=== PATIENT | female | born 1960 | race Caucasian/White ===

== ENCOUNTER 2020-03-20 09:45 | Outpatient (REF) | payer BC, SELFPAY ==
[2020-03-20 10:24] LABS: MANUAL DIFF FLAG NO
[2020-03-20 10:45] LABS: Creatinine Urine 65.73 mg/dL; Microalbum/Creatinine Ratio Ur 7.6 ug/mg cr
[2020-03-20 10:48] LABS: Alanine Aminotransferase 20 U/L (0-31); Albumin Level 4.1 g/dL (3.5-5.0); Alkaline Phosphatase 52 U/L (39-117); Anion Gap 12 (12-20); Aspartate Amino Transferase 19 U/L (5-31); Bilirubin Total 0.9 mg/dL (0.0-1.0); Blood Urea Nitrogen 11 mg/dL (9-16); Calcium 8.6 mg/dL (8.4-10.2); Carbon Dioxide 26 mmol/L (22-29); Chloride 104 mmol/L (96-108); Cholesterol 208 mg/dL; Estimated Glomerular Filt Rate 55; Glucose Fasting 98 mg/dL (60-99); HDL Cholesterol 59 mg/dL; LDL Cholesterol Calculated 128 mg/dl; Potassium 4.1 mmol/l (3.3-5.1); Sodium 138 mmol/L (135-145); Total Protein 6.7 g/dL (6.5-8.0); Triglycerides 109 mg/dL
[2020-03-20 11:04] LABS: Basophils Absolute Auto 0.1 X10*3/uL (0.0-0.2); Eosinophils Absolute Auto 0.2 X10*3/uL (0.0-0.4); Eosinophils Percent Auto 2.4 % (0-4); Hematocrit 42.3 % (37-47); Hemoglobin 13.8 g/dl (12.0-16.0); Imm Gran Abs Auto 0.02 X10*3/uL (0.00-0.03); Imm Gran Pct Auto 0.3 % (0.0-0.4); Lymphocytes Absolute Auto 2.2 X10*3/uL (1.2-4.9); Lymphocytes Percent Auto 34.8 % (20-40); Mean Corpuscular HGB Conc 32.6 g/dl (31.0-35.0); Mean Corpuscular Hemoglobin 30.1 pg (27.0-33.0); Mean Corpuscular Volume 92.2 fL (80-98); Mean Platelet Volume 8.5 fL (9.4-12.3); Monocytes Absolute Auto 0.5 X10*3/uL (0.1-1.2); Monocytes Percent Auto 7.8 % (2-11); Neutrophils Absolute Auto 3.4 X10*3/uL (2.0-8.3); Neutrophils Percent Auto 53.7 % (45-73); Platelet Count 290 X10*3/uL (160-400); Red Blood Count 4.59 X10*6/uL (4.20-5.50); Red Cell Distribution Width 12.4 % (11.0-16.0); White Blood Count 6.3 X10*3/uL (4.8-10.8)
[2020-03-20 11:10] LABS: Glucose Urine UA NEG (NEG); Leukocyte Esterase Urine 1+ (NEG); Nitrite Urine NEG (NEG); Specific Gravity - Urine 1.015 (1.005-1.025); Urine Blood NEG (NEG); Urine Ketones NEG (NEG); Urine Protein NEG (NEG-TRACE)
[2020-03-20 11:18] LABS: Appearance Urine CLEAR; Color Urine YELLOW
[2020-03-20 11:30] LABS: Mucus Urine 1+ /LPF; RBC Urine 0 /HPF (0); Renal Epithelial Cells Urine 1+ /LPF; Squamous Epithelial Cell Urine 1+ /LPF
[2020-03-22 08:06] LABS: HIV AB/AG Nonreactive (Nonreactive); ~HepC Num1 0.11 S/CO (0.00-0.79); ~Hepatitis C Antibody Nonreactive (Nonreactive)
== END 2020-03-20 09:46 | disposition home or self-care (01) ==
LOC: HO.LAB 09:45
PROVIDERS: Absent Provider Internal Medicine Hypertension Specialist; PCP Internal Medicine; Visit Provider Internal Medicine
DX: G43.909 Migraine, unspecified, not intractable, without status migrainosus (principal); E78.00 Pure hypercholesterolemia, unspecified; E55.9 Vitamin D deficiency, unspecified; E78.5 Hyperlipidemia, unspecified; N18.30 Chronic kidney disease, stage 3 unspecified; Z11.4 Encounter for screening for human immunodeficiency virus [HIV]; Z11.59 Encounter for screening for other viral diseases
CPT/HCPCS: 36415; 80053; 80061; 81001; 81003; 82043; 82306; 84443; 85025; 86803; 87389

== ENCOUNTER 2020-10-19 07:53 | Outpatient (REF) | payer BC, SELFPAY ==
[2020-10-19 09:25] LABS: Anion Gap 11 (12-20); Blood Urea Nitrogen 14 mg/dL (9-16); Calcium 8.8 mg/dL (8.4-10.2); Carbon Dioxide 26 mmol/L (22-29); Chloride 108 mmol/L (96-108); Estimated Glomerular Filt Rate 47; Potassium 3.9 mmol/L (3.3-5.1); Sodium 141 mmol/L (135-145)
[2020-10-19 10:46] LABS: Glucose Urine UA NEG (NEG); Leukocyte Esterase Urine NEG (NEG); Nitrite Urine NEG (NEG); PH 5.5 (5.0-8.0); Specific Gravity - Urine >= 1.030 (1.005-1.025); Urine Blood NEG (NEG); Urine Ketones NEG (NEG); Urine Protein TRACE MG/DL (NEG-TRACE)
[2020-10-19 10:48] LABS: Creatinine Urine 280.77 mg/dL; Microalbum/Creatinine Ratio Ur 6.7 ug/mg cr
[2020-10-19 10:49] LABS: Appearance Urine HAZY; Color Urine YELLOW
== END 2020-10-19 07:54 | disposition home or self-care (01) ==
LOC: HO.LAB 07:53
PROVIDERS: PCP Internal Medicine; Visit Provider Internal Medicine Hypertension Specialist
DX: E78.5 Hyperlipidemia, unspecified (principal); N18.30 Chronic kidney disease, stage 3 unspecified
CPT/HCPCS: 36415; 80051; 81003; 82043; 82310; 82565; 84520

== ENCOUNTER 2021-06-28 08:20 | Outpatient (REF) | payer BC, SELFPAY ==
[2021-06-28 08:36] LABS: MANUAL DIFF FLAG NO
[2021-06-28 09:19] LABS: Basophils Absolute Auto 0.1 X10*3/uL (0.0-0.2); Eosinophils Absolute Auto 0.2 X10*3/uL (0.0-0.4); Eosinophils Percent Auto 2.6 % (0-4); Hematocrit 42.1 % (37.0-47.0); Hemoglobin 13.7 g/dl (12.0-16.0); Imm Gran Abs Auto 0.02 X10*3/uL (0.00-0.03); Imm Gran Pct Auto 0.3 % (0.0-0.4); Lymphocytes Absolute Auto 2.3 X10*3/uL (1.2-4.9); Lymphocytes Percent Auto 37.1 % (20-40); Mean Corpuscular HGB Conc 32.5 g/dl (31.0-35.0); Mean Corpuscular Hemoglobin 30.2 pg (27.0-33.0); Mean Corpuscular Volume 92.7 fL (80.0-98.0); Mean Platelet Volume 8.6 fL (9.4-12.3); Monocytes Absolute Auto 0.5 X10*3/uL (0.1-1.2); Monocytes Percent Auto 7.7 % (2-11); Neutrophils Absolute Auto 3.1 x10*3/uL (2.0-8.3); Neutrophils Percent Auto 51.3 % (45-73); Platelet Count 272 X10*3/uL (160-400); Red Blood Count 4.54 X10*6/uL (4.20-5.50); Red Cell Distribution Width 12.9 % (11.0-16.0); White Blood Count 6.1 X10*3/uL (4.8-10.8)
[2021-06-28 09:41] LABS: Alanine Aminotransferase 26 U/L (0-31); Alkaline Phosphatase 56 U/L (39-117); Anion Gap 13 (12-20); Aspartate Amino Transferase 20 U/L (5-31); Bilirubin Total 0.5 mg/dL (0.0-1.0); Blood Urea Nitrogen 12 mg/dL (9-16); Calcium 8.9 mg/dL (8.4-10.2); Carbon Dioxide 27 mmol/L (22-29); Chloride 106 mmol/L (96-108); Cholesterol 229 mg/dL; Estimated Glomerular Filt Rate 52; Glucose Random 106 mg/dL (60-115); HDL Cholesterol 59 mg/dL; LDL Cholesterol Calculated 139 mg/dl; Potassium 4.5 mmol/L (3.3-5.1); Sodium 141 mmol/L (135-145); Total Protein 6.7 g/dL (6.5-8.0); Triglycerides 157 mg/dL
[2021-06-28 09:54] LABS: Thyroid Stimulating Hormone 2.25 uIU/mL (0.32-4.0)
== END 2021-06-28 08:21 | disposition home or self-care (01) ==
LOC: HO.LAB 08:20
PROVIDERS: PCP Internal Medicine; Visit Provider Internal Medicine
DX: N18.31 Chronic kidney disease, stage 3a (principal); E78.00 Pure hypercholesterolemia, unspecified
CPT/HCPCS: 36415; 80053; 80061; 84443; 85025

== ENCOUNTER 2021-10-11 08:28 | Outpatient (REF) | payer BC, SELFPAY ==
[2021-10-11 09:11] LABS: MANUAL DIFF FLAG NO
[2021-10-11 10:03] LABS: Basophils Absolute Auto 0.1 X10*3/uL (0.0-0.2); Basophils Percent Auto 0.8 % (0-2); Eosinophils Absolute Auto 0.2 X10*3/uL (0.0-0.4); Eosinophils Percent Auto 2.9 % (0-4); Hematocrit 40.5 % (37.0-47.0); Hemoglobin 13.5 g/dl (12.0-16.0); Imm Gran Abs Auto 0.02 X10*3/uL (0.00-0.03); Imm Gran Pct Auto 0.3 % (0.0-0.4); Lymphocytes Absolute Auto 2.1 X10*3/uL (1.2-4.9); Lymphocytes Percent Auto 33.5 % (20-40); Mean Corpuscular HGB Conc 33.3 g/dl (31.0-35.0); Mean Corpuscular Hemoglobin 30.3 pg (27.0-33.0); Mean Platelet Volume 8.7 fL (9.4-12.3); Monocytes Absolute Auto 0.5 X10*3/uL (0.1-1.2); Monocytes Percent Auto 8.6 % (2-11); Neutrophils Absolute Auto 3.4 x10*3/uL (2.0-8.3); Neutrophils Percent Auto 53.9 % (45-73); Platelet Count 279 X10*3/uL (160-400); Red Blood Count 4.45 X10*6/uL (4.20-5.50); Red Cell Distribution Width 12.8 % (11.0-16.0); White Blood Count 6.3 X10*3/uL (4.8-10.8)
[2021-10-11 10:28] LABS: Appearance Urine CLEAR; Color Urine YELLOW; Glucose Urine UA NEG (NEG); Leukocyte Esterase Urine NEG (NEG); Nitrite Urine NEG (NEG); PH 5.5 (5.0-8.0); Urine Blood NEG (NEG); Urine Ketones NEG (NEG); Urine Protein NEG (NEG-TRACE)
[2021-10-11 10:44] LABS: Anion Gap 13 (12-20); Blood Urea Nitrogen 14 mg/dL (9-16); Carbon Dioxide 26 mmol/L (22-29); Chloride 107 mmol/L (96-108); Cholesterol 231 mg/dL; Estimated Glomerular Filt Rate 51; HDL Cholesterol 57 mg/dL; LDL Cholesterol Calculated 146 mg/dl; Magnesium 1.9 mg/dL (1.6-2.6); Phosphorus 3.5 mg/dL (2.7-4.5); Potassium 4.6 mmol/L (3.3-5.1); Sodium 141 mmol/L (135-145); Triglycerides 144 mg/dL
[2021-10-11 10:45] LABS: RBC Urine 0 /HPF (0); Squamous Epithelial Cell Urine 1+ /LPF; WBC Urine 0-2 /HPF (0-4)
[2021-10-11 10:46] LABS: Renal Epithelial Cells Urine TRACE /LPF
[2021-10-11 11:05] LABS: Ferritin 122 ng/mL (10-250)
== END 2021-10-11 08:29 | disposition home or self-care (01) ==
LOC: HO.LAB 08:28
PROVIDERS: PCP Internal Medicine; Visit Provider Internal Medicine Hypertension Specialist
DX: E78.5 Hyperlipidemia, unspecified (principal); N18.31 Chronic kidney disease, stage 3a
CPT/HCPCS: 36415; 80051; 80061; 81001; 82310; 82565; 82728; 83735; 84100; 84520; 85025

== ENCOUNTER 2022-02-21 08:19 | Outpatient (REF) | payer BC, SELFPAY ==
[2022-02-21 09:57] LABS: Anion Gap 13 (12-20); Calcium 9.1 mg/dL (8.4-10.2); Carbon Dioxide 27 mmol/L (22-29); Chloride 104 mmol/L (96-108); Estimated Glomerular Filt Rate 55; Glucose Random 105 mg/dL (60-115); Potassium 4.6 mmol/L (3.3-5.1); Sodium 139 mmol/L (135-145)
[2022-02-21 10:04] LABS: Estimated Average Glucose 108 mg/dL; Hemoglobin A1c % 5.4 %
[2022-02-21 11:30] LABS: Blood Urea Nitrogen 13 mg/dL (9-16)
== END 2022-02-21 08:20 | disposition home or self-care (01) ==
LOC: HO.LAB 08:19
PROVIDERS: PCP Internal Medicine; Visit Provider Internal Medicine
DX: R73.01 Impaired fasting glucose (principal); N18.31 Chronic kidney disease, stage 3a
CPT/HCPCS: 36415; 80048; 83036

== ENCOUNTER 2022-10-09 08:16 | Outpatient (REF) | payer BC, SELFPAY ==
[2022-10-09 09:20] LABS: Appearance Urine Clear; Color Urine Dark Yellow; Glucose Urine UA Negative (Negative); Leukocyte Esterase Urine Moderate (2+) (Negative); Nitrite Urine Negative (Negative); PH 5.5 (5.0-9.0); Specific Gravity - Urine 1.025 (1.005-1.025); UMIC TRIGGER UA YES; Urine Blood Negative (Negative); Urine Ketones Trace mg/dL (Negative); Urine Protein Trace mg/dL (Neg-Trace)
[2022-10-09 10:03] LABS: Anion Gap 12 (12-20); Blood Urea Nitrogen 12 mg/dL (9-16); Calcium 9.3 mg/dL (8.4-10.2); Carbon Dioxide 27 mmol/L (22-29); Chloride 107 mmol/L (96-108); Estimated Glomerular Filt Rate 48; Potassium 3.7 mmol/L (3.3-5.1); Sodium 142 mmol/L (135-145)
[2022-10-09 10:08] LABS: Bacteria Urine None Seen (None Seen); RBC Urine 0-2 /HPF (0-2); WBC Urine 21-50 /HPF (0-5)
[2022-10-09 10:13] LABS: Protein/Creatinine Ratio, Ur 0.05 (<0.2); Total Protein Urine Random 18 mg/dL (<12)
== END 2022-10-09 08:17 | disposition home or self-care (01) ==
LOC: HO.LAB 08:16
PROVIDERS: PCP Internal Medicine; Visit Provider Internal Medicine Hypertension Specialist
DX: N18.31 Chronic kidney disease, stage 3a (principal)
CPT/HCPCS: 36415; 80051; 81001; 82310; 82565; 84156; 84520

== ENCOUNTER 2023-05-22 08:29 | Outpatient (REF) | payer BC, SELFPAY ==
[2023-05-22 09:02] LABS: MANUAL DIFF FLAG NO
[2023-05-22 10:31] LABS: Basophils Absolute Auto 0.1 X10*3/uL (0.0-0.2); Basophils Percent Auto 1.1 % (0-2); Eosinophils Absolute Auto 0.2 X10*3/uL (0.0-0.4); Eosinophils Percent Auto 2.7 % (0-4); Hematocrit 40.5 % (37.0-47.0); Hemoglobin 13.4 g/dl (12.0-16.0); Imm Gran Abs Auto 0.02 X10*3/uL (0.00-0.03); Imm Gran Pct Auto 0.3 % (0.0-0.4); Lymphocytes Absolute Auto 2.2 X10*3/uL (1.2-4.9); Lymphocytes Percent Auto 33.6 % (20-40); Mean Corpuscular HGB Conc 33.1 g/dl (31.0-35.0); Mean Corpuscular Hemoglobin 29.8 pg (27.0-33.0); Mean Corpuscular Volume 90.2 fL (80.0-98.0); Mean Platelet Volume 8.5 fL (9.4-12.3); Monocytes Absolute Auto 0.5 X10*3/uL (0.1-1.2); Monocytes Percent Auto 6.8 % (2-11); Neutrophils Absolute Auto 3.7 x10*3/uL (2.0-8.3); Neutrophils Percent Auto 55.5 % (45-73); Platelet Count 268 X10*3/uL (160-400); Red Blood Count 4.49 X10*6/uL (4.20-5.50); Red Cell Distribution Width 12.8 % (11.0-16.0); White Blood Count 6.6 X10*3/uL (4.8-10.8)
[2023-05-22 10:43] LABS: Estimated Average Glucose 105 mg/dL; Hemoglobin A1c % 5.3 % (<6.0)
[2023-05-22 10:58] LABS: Appearance Urine Clear; Color Urine Yellow; Glucose Urine UA Negative (Negative); Leukocyte Esterase Urine Trace (Negative); Nitrite Urine Negative (Negative); Specific Gravity - Urine <= 1.005 (1.005-1.025); UMIC TRIGGER UA YES; Urine Blood Negative (Negative); Urine Ketones Negative (Negative); Urine Protein Negative (Neg-Trace)
[2023-05-22 11:06] LABS: Bacteria Urine None Seen (None Seen); Hyaline Casts Urine 0-2 /LPF (0-2); RBC Urine 0-2 /HPF (0-2); Squamous Epithelial Cell Urine 0-2 /HPF (0-2); WBC Urine 0-5 /HPF (0-5)
[2023-05-22 11:26] LABS: Alanine Aminotransferase 26 U/L (0-31); Albumin Level 3.9 g/dL (3.5-5.0); Alkaline Phosphatase 53 U/L (39-117); Anion Gap 13 (12-20); Aspartate Amino Transferase 22 U/L (5-31); Bilirubin Total 0.5 mg/dL (0.0-1.0); Blood Urea Nitrogen 13 mg/dL (9-16); Calcium 8.7 mg/dL (8.4-10.2); Carbon Dioxide 27 mmol/L (22-29); Chloride 102 mmol/L (96-108); Cholesterol 239 mg/dL (<200); Estimated Glomerular Filt Rate 52; Glucose Random 99 mg/dL (60-115); HDL Cholesterol 62 mg/dL (>40); LDL Cholesterol Calculated 144 mg/dL (<100); Potassium 3.9 mmol/L (3.3-5.1); Sodium 138 mmol/L (135-145); Total Protein 6.7 g/dL (6.5-8.0); Triglycerides 167 mg/dL (<150)
[2023-05-22 11:44] LABS: Thyroid Stimulating Hormone 2.15 uIU/mL (0.32-4.0)
== END 2023-05-22 08:30 | disposition home or self-care (01) ==
LOC: HO.LAB 08:29
PROVIDERS: PCP Internal Medicine; Visit Provider Internal Medicine
DX: E78.00 Pure hypercholesterolemia, unspecified (principal); N18.31 Chronic kidney disease, stage 3a; R73.01 Impaired fasting glucose
CPT/HCPCS: 36415; 80053; 80061; 81001; 81003; 83036; 84443; 85025

== ENCOUNTER 2023-09-17 15:55 | Outpatient (AMB) | payer BC, SELFPAY ==
[2023-09-17 15:57] VITALS: BP 122/68; PULSE 87; O2SAT 96; BMI 27.9
--- NOTE | 2023-09-17 15:57 | HO.NEPHOV ---
Vital Signs 09/17/23 15:57 Height 5 ft 7.5 in Weight 181 lb BMI 27.9 BP 122/68 Blood Pressure Location Lt brachial Position Sitting Pulse 87 Pulse Source Pulse Oximeter Pulse Oximetry (%) 96 Oxygen Delivery Method Room Air Intake Visit Reasons: 1Y follow up/ Confirmed Cable Television Installer Required: No Accompanied by: Self / Same As Patient Allergies No Known Allergies Allergy (Verified 09/17/23 16:00) HPI Comments Details: 63 yr old woman with mild CKD is here for annual follow up No [facility] Family History (Updated 09/17/23 @ 16:01 by Corina Kong) Mother CKD (chronic kidney disease) stage 4, GFR 15-29 ml/min Sister CKD (chronic kidney disease) stage 3, GFR 30-59 ml/min Social History (Updated 09/17/23 @ 16:01 by Corina Kong) Use of substances other than those prescribed or required for medical reasons: No Review of Systems Const Denies fever(s) and Denies weight loss Card Denies chest pain Resp Denies cough and Denies hemoptysis GI Denies abdominal pain, Denies diarrhea and Denies nausea Musc Denies back pain Neuro Denies focal weakness Physical Exam Vital Signs: Last Vital Signs Pulse 87 09/17/23 15:57 BP 122/68 09/17/23 15:57 Pulse Ox 96 09/17/23 15:57 Oxygen Delivery Method Room Air 09/17/23 15:57 BMI result Body Mass Index 27.9 Results Reviewed Nephrology Results: Hgb 13.4 g/dl (12.0-16.0) 05/22/23 WBC 6.6 X10*3/uL (4.8-10.8) 05/22/23 Plt Count 268 X10*3/uL (160-400) 05/22/23 Sodium 138 mmol/L (135-145) 05/22/23 Potassium 3.9 mmol/L (3.3-5.1) 05/22/23 Chloride 102 mmol/L (96-108) 05/22/23 Carbon Dioxide 27 mmol/L (22-29) 05/22/23 BUN 13 mg/dL (9-16) 05/22/23 Creatinine 1.06 mg/dL (0.5-1.4) 05/22/23 Calcium 8.7 mg/dL (8.4-10.2) 05/22/23 Phosphorus 3.5 mg/dL (2.7-4.5) 10/11/21 Urine Protein Negative mg/dL (Neg-Trace) 05/22/23 Urine Creatinine 334.72 mg/dL 10/09/22 Protein/Creatinin Ratio 0.05 (<0.2) 10/09/22 Assessment & Plan Assessment & Plan (1) CKD (chronic kidney disease): Code(s): N18.9 - Chronic kidney disease, unspecified Category: Medical Plan: . 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
== END 2023-09-17 16:15 | disposition home or self-care (01) ==
PROVIDERS: PCP Internal Medicine; Visit Provider Internal Medicine Hypertension Specialist
DX: N18.9 Chronic kidney disease, unspecified (principal)
CPT/HCPCS: 99213

== ENCOUNTER → 2023-09-17 15:55 | Outpatient (BNVA) | payer BC, SELFPAY | PROVIDERS: PCP Internal Medicine; Visit Provider Internal Medicine Hypertension Specialist ==

== ENCOUNTER 2024-07-03 14:15 | Outpatient (REF) | payer BC, SELFPAY ==
--- NOTE | ~2024-07-03 | MM_ITS ---
EXAMINATION: DXA BONE DENSITY AXIAL HISTORY: Estrogen deficiency TECHNIQUE: Visier Dual energy absorptiometry (DEXA) of the lumbar spine, total left hip, and femoral neck was performed. COMPARISON: There are no prior studies for comparison. FINDINGS: The bone mineral density of the lumbar spine is 0.915 with a T-score of -2.2, and a Z-score of -1.1. This is indicative of osteopenia. The bone mineral density of the left total hip is 0.935 with a T-score of -0.6, and a Z-score of 0.3. This is indicative of normal bone mineral density. The bone mineral density of the left femoral neck is 0.831 with a T-score of -1.5, and a Z-score of -0.3. This is indicative of osteopenia. FRACTURE RISK: The FRAX index suggests a risk of major osteoporotic fracture of 8.7%, and of hip fracture 0.9%. MM/XR DEXA axial skeleton IMPRESSION: Based on bone mineral density, and according to World Health Organization (WHO) criteria, the diagnosis is consistent with osteopenia. All bone density values are in grams per centimeter squared (g/cm2). Statistically, 68% of repeat scans fall within 1 SD (+/- 0.010 g/cm2 for AP spine L1-L4) and 1 SD (+/- 0.012 g/cm2 for femur total) FRAX is a trademark of the [employer] [place] for Metabolic Bone Disease, a World Health Organization (WHO) Collaborating Center. Electronically signed by: Haris Sanchez MD 07/03/2024 03:04 PM EDT
--- OUTSIDE RECORDS SUMMARY | 2024-07-03 16:55 | XMS_ITS | Encounter Summary ---
Author Organization [facility] Address [address] [place] [address] Care Team Providers Care Log Processor Operator Name Role Phone Aniket Allen MD Primary Care Provider [phone] Encounter Details Date Type Department Care Team (Latest Contact Info) Description 03/21/2024 Lab Requisition [facility] [address] [facility] [place] [address] Hoa Polo MD [address] [address] Encounter for gynecological examination (general) (routine) without abnormal findings Social History Tobacco Use Types Packs/Day Years Used Date Smoking Tobacco: Never Assessed Comments Unknown Sex and Gender Information Value Date Recorded Sex Assigned at Not on file Legal Sex Female 8:00 AM EST Gender Identity Not on file Sexual Orientation Not on file documented as of this encounter Plan of Treatment Not on file documented as of this encounter Procedures Procedure Name Priority Date/Time Associated Diagnosis Comments PAP SMEAR Routine 03/20/2024 12:00 AM EST Encounter for gynecological examination (general) (routine) without abnormal findings documented in this encounter Results * Pap smear (03/20/2024 12:00 AM EST) Interpretation Negative for intraepithelial lesion or malignancy 03/25/2024 10:05 AM EST [facility] General Categorization Negative 03/25/2024 10:05 AM EST [facility] Specimen Adequacy Satisfactory for evaluation, endocervical/florence sformation zone component present 03/25/2024 10:05 AM [facility] Pap Methodology Liquid Based Pap Test 03/25/2024 10:05 AM EST [facility] Disclaimer The Pap test is a screening test which carries an inherent false negative rate. These test results should be correlated with the patient's clinical findings and history. This Pap test was processed using an automated screening system. Technical cytopathology services provided by [facility], at [address] [place] [address] (CLIA # [id number]/Jessica Clarke MD, Resource Economist.) 03/25/2024 10:05 AM [facility] Console Pap Interpretation Reported 03/25/2024 10:05 AM [facility] Brushing/Spatula Cervix uteri structure / Unknown 03/20/2024 03/21/2024 8:06 AM EST us Hoa Polo MD LAB CYTOLOGY ORDERABLES Final Result [facility] [address] [place] [address], documented in this encounter Visit Diagnoses Diagnosis Encounter for gynecological examination (general) (routine) without abnormal findings documented in this encounter Care Teams Log Processor Operator Relationship Specialty Start Date End Date Aniket Allen MD [address] [place] [id number] PCP - General Internal Medicine 03/21/24 documented as of this encounter
--- OUTSIDE RECORDS SUMMARY | 2024-07-03 16:55 | XMS_ITS | Patient Health Record ---
Author Organization [facility] Address [address] [place] [address] Care Team Providers Care Injection Molding Machine Setter Name Role Phone Aniket Allne MD Primary Care Provider Unavaila Soy Malhotra Unavailable [phone] Reason For Referral No Information Medications Medication SIG (Take, Route, Fr equency, Duration) Notes Start Date End Date Status Nightsplint . . . AFO - L1930 for . Active Physical Therapy . . . 2-3x/week for 3-4 weeks 11/2017 Active Social History Tobacco Use: Social History Observation Description Date Details (start date - stop date) Never Smoker NA - NA Tobacco use other than smoking: Question Answer Notes Are you an other tobacco user? No Tobacco Control (Standard) Question Answer Notes Tobacco use: Nonsmoker Additional Findings: Tobacco non-user Current no nsmoker AUDIT-C (Standard) Question Answer Notes Did you have a drink contain ing alcohol in the past year? Yes How often did you have a dri nk containing alcohol in the past year? Declined to specify (0 point) How many drinks did you have on a typical day when you were drinking in the past year? Declined to specify (0 point) How often did you have six o r more drinks on one occasion in the past year? Declined to specify (0 point) Points 0 Interpretation Negative Problems Problem Type SNOMED Code ICD Code Onset Dates Problem Status W/U Status Risk Notes Problem Plantar fascial fibromatosis (13186656) Plantar fascial fibromatosis (M72.2) Active confirmed Plan Of Treatment Pending Test Test Name Order Date ,[id number] TENDON SHEATH/LIGAMENT 0 09/26/2017,[id number] TENDON SHEATH/LIGAMENT 0 10/11/2017,[id number] TENDON SHEATH/LIGAMENT 0 10/24/2017 Next Appt Details Provider Name:Soy Mejía , 07/15/2024 01:00:00 PM, [address] [place] [address], [id number], Insurance Providers Payer Name Payer Address Payer Phone Subscriber Number Group Number Insured Name Patient Relationship to Insured Coverage Start Date Coverage End Date [facility] [address] [place], [place] [phone] [id number] Justin Mayorga Spouse - patient is the spouse of the insured 0 Medical (General) History Medical History History ICD Code Arthritis Headaches Macular degeneration Cataracts covid-19 Headaches/Migraines Kidney disease Measles Mumps Chicken pox
--- OUTSIDE RECORDS SUMMARY | 2024-07-03 16:55 | XMS_ITS | Clinical Summary ---
Author Organization [facility] Address [address] [place] [address] Phone Care Team Providers Care Class 1 Owner Operator Name Role Phone Aniket Aleln MD Primary Care Provider [phone] Allergies No known active allergies Medications [place]-3 Fatty Acids (FISH OIL PO) 1 tab(s) Dx Active MULTIPLE VITAMINS-MINERA LS ER PO Take 2 tablets by mouth 1 (one) time each day Active Ascorbic Acid (Vitamin C ER) 1000 MG tablet controlled-rele ase Take 1 tablet by mouth 1 (one) time each day Active Lutein 6 MG capsule Take 2 capsules by mouth 1 (one) time each day Active Red Yeast Rice Extract 600 MG capsule Take 4 capsules by mouth 1 (one) time each day Active SUMAtriptan (IMITREX) 100 MG tablet Take 1 tablet by mouth 2 (two) times a day Active Active Problems Problem Noted Date Diagnosed Date Chronic kidney disease stage 3 10/12/2020 Hyperlipidemia 10/12/2020 Migraine 10/12/2020 Family History Medical History Relation Comments Kidney disease Father Relation Status Comments Father Social History Tobacco Use Types Packs/Day Years Used Date Smoking Tobacco: Never Smokeless Tobacco: Never Alcohol Use Standard Drinks/Week Comments Yes 0 (1 standard drink = 0.6 oz pure alcohol) Alcoholic Drinks/day: Occasional social drink Comments Unknown Sex and Gender Information Value Date Recorded Sex Assigned at Not on file Legal Sex Female 4:54 PM EST Gender Identity Not on file Sexual Orientation Not on file Last Filed Vital Signs Vital Sign Reading Time Taken Comments Blood Pressure 134/78 10/12/2022 4:24 PM EDT Pulse 66 10/12/2022 4:24 PM EDT Temperature - - Respiratory Rate - - Oxygen Saturation 98% 10/12/2022 4:24 PM EDT Inhaled Oxygen Concentration - - Weight 79.9 kg (176 lb 3.2 oz) 10/12/2022 4:24 P M EDT Height 170.2 cm (5' 7 ) 10/12/2022 4:24 PM EDT Body Mass Index 27.6 10/12/2022 4:24 PM EDT Plan of Treatment Health Maintenance Due Date Last Done Comments Breast Cancer Screening 1960 Pneumococcal Vaccine: Pediatrics (0 to 5 Years) and At-Risk Patients (6 to 64 Years) (1 of 2 - PCV) 07/01/1965 Colorectal Cancer Screening: Annual FOBT 07/01/2008 Colorectal Cancer Screening: Colonoscopy 07/01/2008 Colorectal Cancer Screening: Sigmoidoscopy 07/01/2008 Influenza Vaccine (#1) 2023 2, 02/14/2021, 01/27/2020, Additional history exists Hepatitis B Vaccine Aged Out No longe r eligible based on patient's age to complete this topic Insurance [facility] Care Teams Class 1 Owner Operator Relationship Specialty Start Date End Date Aniket Allen MD [address] [place] [id number] PCP - General 04/26/20
--- OUTSIDE RECORDS SUMMARY | 2024-07-03 16:55 | XMS_ITS | Clinical Summary ---
Author Organization [address] [facility] Address [address] [place] [address] Phone Care Team Providers Care Oilfield Plant And Field Operator Name Role Phone Aniket Allen MD Primary Care Provider [phone] Social History Tobacco Use Types Packs/Day Years Used Date Smoking Tobacco: Never Assessed Comments Unknown Sex and Gender Information Value Date Recorded Sex Assigned at Not on file Legal Sex Female 8:00 AM EST Gender Identity Not on file Sexual Orientation Not on file Plan of Treatment Health Maintenance Due Date Last Done Comments Breast Cancer Screening 1960 DTaP,Tdap,and Td Vaccines (1 - Tdap) 07/01/1978 Pneumococcal Vaccine: 50+ Ye ars (1 of 1 - PCV) 07/01/2009 Zoster Vaccines (1 of 2) 07/01/2009 COVID-19 Vaccine ( - 2023-2 5 season) 2023 Influenza Vaccine (#1) 2023 Colorectal Cancer Screening: Colonoscopy 03/21/2024 Depression Screening 03/21/2024 HIV Screening 03/21/2024 Hepatitis C Screening 03/21/2024 Social Influencers of Health Screening 03/21/2024 Cervical Cancer Screening: P ap Smear 03/20/2027 03/20/2024 RSV Immunization Patients 60 + Years Old (1 - 1-dose 75+ series) 07/01/2034 HIB Vaccines Aged Out No longer eligi ble based on patient's age to complete this topic HPV Vaccines Aged Out No longer eligi ble based on patient's age to complete this topic Hepatitis A Vaccines Aged Out No long er eligible based on patient's age to complete this topic Hepatitis B Vaccines Aged Out No long er eligible based on patient's age to complete this topic IPV Vaccines Aged Out No longer eligi ble based on patient's age to complete this topic MMR Vaccines Aged Out No longer eligi ble based on patient's age to complete this topic Meningococcal ACWY Vaccine Aged Out N o longer eligible based on patient's age to complete this topic Meningococcal B Vacine Aged Out No lo nger eligible based on patient's age to complete this topic Pneumococcal Vaccine: Pediat rics (0 to 5 Years) and At-Risk Patients (6 to 64 Years) Aged Out No longer eligi ble based on patient's age to complete this topic RSV Immunization Patients Un carol ann 20 months Aged Out No longer eligible b ased on patient's age to complete this topic Varicella Vaccines Aged Out No longer eligible based on patient's age to complete this topic Procedures Procedure Name Priority Date/Time Associated Diagnosis Comments PAP SMEAR Routine 03/20/2024 12:00 AM EST Encounter for gynecological examination (general) (routine) without abnormal findings from Last 3 Months or Most Recently Relevant to Health Maintenance Results * Pap smear (03/20/2024 12:00 AM EST) Interpretation Negative for intraepithelial lesion or malignancy 03/25/2024 10:05 AM [facility] General Categorization Negative 03/25/2024 10:05 AM [facility] Specimen Adequacy Satisfactory for evaluation, endocervical/florence sformation zone component present 03/25/2024 10:05 AM [facility] Pap Methodology Liquid Based Pap Test 03/25/2024 10:05 AM [facility] Disclaimer The Pap test is a screening test which carries an inherent false negative rate. These test results should be correlated with the patient's clinical findings and history. This Pap test was processed using an automated screening system. Technical cytopathology services provided by [facility], at [address] [place] [address], [place] [address] (CLIA # [id number]/Jessica Clarke MD, Capsule Filler.) 03/25/2024 10:05 AM [facility] Console Pap Interpretation Reported 03/25/2024 10:05 AM [facility] Brushing/Spatula Cervix uteri structure / Unknown 03/20/2024 03/21/2024 8:06 AM EST us Hoa Polo MD LAB CYTOLOGY ORDERABLES Final Result [facility] [address] [place] [address], from Last 3 Months or Most Recently Relevant to Health Maintenance Insurance [facility] Care Teams Oilfield Plant And Field Operator Relationship Specialty Start Date End Date Aniket Allen MD [address] [place] [address] PCP - General Internal Medicine 03/21/24
== END 2024-07-03 14:16 | disposition home or self-care (01) ==
LOC: HO.MAMMO 14:15
PROVIDERS: PCP Internal Medicine; Visit Provider Internal Medicine
DX: Z13.820 Encounter for screening for osteoporosis (principal); Z78.0 Asymptomatic menopausal state
CPT/HCPCS: 77080

== ENCOUNTER → 2024-07-03 14:30 | Outpatient (BNV) | payer BC, SELFPAY | PROVIDERS: PCP Internal Medicine; Visit Provider Radiology Diagnostic Radiology | DX: E28.39 Other primary ovarian failure (principal) | CPT/HCPCS: 77080 ==

== ENCOUNTER 2024-09-09 08:26 | Outpatient (REF) | payer BC, SELFPAY ==
[2024-09-09 08:41] LABS: MANUAL DIFF FLAG NO
--- OUTSIDE RECORDS SUMMARY | 2024-09-09 08:46 | XMS_ITS | Patient Health Record ---
Author Organization [facility] Address [address] [place] [address] Care Team Providers Care Egg Processing Supervisor Name Role Phone Aniket Allen MD Primary Care Provider Soy Owens Unavailable [phone] Allergies No Known Allergies Reason For Referral No Information Social History Tobacco Use: Social History Observation [...] specify (0 point) Points 0 Interpretation Negative Vital Signs Height 5 ft 7 in in 07/15/2024 Encounters Encounter Location Date Provider Diagnosis [facility] [address] [place] [address] 07/15/2024 Soy Mejía Pain in right foot M79.671 ; Pain in right ankle and joints of right foot M25.571 ; Bursitis of intermetatarsal bursa of right foot M77.51 and Metatarsalgia, right foot M77.41 [facility] [place] [address] [place] [address] 07/15/2024 Soy Mejía Assessments Encounter Date Diagnosis (ICD Code) Assessment Notes Treatment Notes Treatment Clinical Notes Section Notes 07/15/2024 Pain in right ankle and joints of right foot (ICD-10 - M25.571) 07/15/2024 Pain in right foot (ICD-10 - M79.671) 07/15/2024 Bursitis of intermetatarsal bursa of right foot (ICD-10 - M77.51) 07/15/2024 Metatarsalgia, right foot (ICD-10 - M77.41) Plan Of Treatment Pending Test Test Name Order Date X ray : Foot, right 3V 07/15/2024 [id number] TENDON SHEATH/LIGAMENT 0 09/26/2017 [id number] TENDON SHEATH/LIGAMENT 0 10/11/201761997,[id number] TENDON SHEATH/LIGAMENT 0 10/24/2017 Insurance Providers Payer Name Payer Address Payer Phone Subscriber Number Group Number Insured Name Patient Relationship to Insured Coverage Start Date Coverage End Date [facility] [address] [place] [address] [phone] [id number] Justin Mayorga Spouse - patient is the spouse of the insured Medical (General) History Medical History History ICD Code Arthritis Headaches Macular degeneration Cataracts covid-19 Headaches/Migraines Kidney disease Measles Mumps Chicken pox
[2024-09-09 09:16] LABS: Basophils Absolute Auto 0.1 X10*3/uL (0.0-0.2); Basophils Percent Auto 1.1 % (0-2); Eosinophils Absolute Auto 0.3 X10*3/uL (0.0-0.4); Eosinophils Percent Auto 4.7 % (0-4); Hematocrit 40.5 % (37.0-47.0); Hemoglobin 13.8 g/dl (12.0-16.0); Imm Gran Abs Auto 0.03 X10*3/uL (0.00-0.03); Imm Gran Pct Auto 0.4 % (0.0-0.4); Lymphocytes Absolute Auto 2.5 X10*3/uL (1.2-4.9); Lymphocytes Percent Auto 35.4 % (20-40); Mean Corpuscular HGB Conc 34.1 g/dl (31.0-35.0); Mean Corpuscular Hemoglobin 30.1 pg (27.0-33.0); Mean Corpuscular Volume 88.4 fL (80.0-98.0); Mean Platelet Volume 8.3 fL (9.4-12.3); Monocytes Absolute Auto 0.6 X10*3/uL (0.1-1.2); Monocytes Percent Auto 7.9 % (2-11); Neutrophils Absolute Auto 3.6 x10*3/uL (2.0-8.3); Neutrophils Percent Auto 50.5 % (45-73); Platelet Count 245 X10*3/uL (160-400); Red Blood Count 4.58 X10*6/uL (4.20-5.50); Red Cell Distribution Width 12.9 % (11.0-16.0); White Blood Count 7.1 X10*3/uL (4.8-10.8)
[2024-09-09 09:22] LABS: Appearance Urine Cloudy; Color Urine Yellow; Glucose Urine UA Negative (Negative); Leukocyte Esterase Urine Trace (Negative); Nitrite Urine Negative (Negative); PH 5.5 (5.0-9.0); Specific Gravity - Urine 1.015 (1.005-1.025); UMIC TRIGGER UA YES; Urine Blood Negative (Negative); Urine Ketones Negative (Negative); Urine Protein Negative (Neg-Trace)
[2024-09-09 09:27] LABS: Bacteria Urine None Seen (None Seen); Hyaline Casts Urine 0-2 /LPF (0-2); RBC Urine 0-2 /HPF (0-2); WBC Urine 0-5 /HPF (0-5)
[2024-09-09 09:38] LABS: Anion Gap 10 (12-20); Blood Urea Nitrogen 13 mg/dL (9-16); Calcium 8.5 mg/dL (8.4-10.2); Carbon Dioxide 26 mmol/L (22-29); Chloride 107 mmol/L (96-108); Estimated Glomerular Filt Rate 53; Glucose Random 104 mg/dL (60-115); Potassium 3.7 mmol/L (3.3-5.1); Sodium 139 mmol/L (135-145)
[2024-09-09 09:50] LABS: Alanine Aminotransferase 29 U/L (0-31); Alkaline Phosphatase 51 U/L (39-117); Anion Gap 11 (12-20); Aspartate Amino Transferase 25 U/L (5-31); Bilirubin Total 0.6 mg/dL (0.0-1.0); Blood Urea Nitrogen 13 mg/dL (9-16); Calcium 8.6 mg/dL (8.4-10.2); Carbon Dioxide 25 mmol/L (22-29); Chloride 107 mmol/L (96-108); Cholesterol 239 mg/dL (<200); Estimated Glomerular Filt Rate 51; Glucose Random 106 mg/dL (60-115); HDL Cholesterol 58 mg/dL (>40); LDL Cholesterol Calculated 150 mg/dL (<100); Potassium 3.8 mmol/L (3.3-5.1); Sodium 139 mmol/L (135-145); Total Protein 6.6 g/dL (6.5-8.0); Triglycerides 159 mg/dL (<150)
== END 2024-09-09 08:27 | disposition home or self-care (01) ==
LOC: HO.LAB 08:26
PROVIDERS: PCP Internal Medicine; Referring Provider Internal Medicine Hypertension Specialist; Visit Provider Internal Medicine
DX: M19.041 Primary osteoarthritis, right hand (principal); M19.042 Primary osteoarthritis, left hand; I10 Essential (primary) hypertension; N18.31 Chronic kidney disease, stage 3a; E78.00 Pure hypercholesterolemia, unspecified
CPT/HCPCS: 36415; 80048; 80053; 80061; 81001; 84443; 85025

== ENCOUNTER 2024-09-25 13:28 | Outpatient (AMB) | payer BC, SELFPAY ==
[2024-09-25 13:31] VITALS: BP 122/80; PULSE 86; O2SAT 95; BMI 29.7
--- NOTE | 2024-09-25 13:31 | HO.NEPHOV_ITS ---
Vital Signs 09/25/24 13:31 Height 5 ft 6 in Weight 184 lb BMI 29.7 BP 122/80 Blood Pressure Location Lt brachial Position Sitting Pulse 86 Pulse Source Pulse Oximeter Pulse Oximetry (%) 95 Oxygen Delivery Method Room Air Intake Visit Reasons: 1 yr follow up/Conf Tape Sewer Required: No Accompanied by: Self / Same As Patient Allergies No Known Allergies Allergy (Verified 09/25/24 13:34) Medication List - Last Reconciled 09/25/24 by Dallas Velez MD ascorbic acid (vitamin C) 1 g PO Q6H multivitamin 1 tab PO DAILY omega 8-xfr-rmt-fish oil 1,000 (120-180) mg (Fish Oil) 1 cap PO DAILY HPI Comments Details: 64 yr old woman with mild CKD is here for annual follow up [facility] Family History Mother CKD (chronic kidney disease) stage 4, GFR 15-29 ml/min Sister CKD (chronic kidney disease) stage 3, GFR 30-59 ml/min Physical Exam Vital Signs: Last Vital Signs Pulse 86 09/25/24 13:31 BP 122/80 09/25/24 13:31 Pulse Ox 95 09/25/24 13:31 Oxygen Delivery Method Room Air 09/25/24 13:31 BMI result Body Mass Index 29.7 Comfortable Neck supple no JVD. Lungs entry equal no rales. Heart S1-S2 heard no gallop or rub. Abdomen soft nontender. Neuro alert awake oriented. No asterixis. Extremities no edema. Results Reviewed Nephrology Results: Hgb 13.8 g/dl (12.0-16.0) 09/09/24 WBC 7.1 X10*3/uL (4.8-10.8) 09/09/24 Plt Count 245 X10*3/uL (160-400) 09/09/24 Sodium 139 mmol/L (135-145) 09/09/24 Potassium 3.8 mmol/L (3.3-5.1) 09/09/24 Chloride 107 mmol/L (96-108) 09/09/24 Carbon Dioxide 25 mmol/L (22-29) 09/09/24 BUN 13 mg/dL (9-16) 09/09/24 Creatinine 1.08 mg/dL (0.5-1.4) 09/09/24 Calcium 8.6 mg/dL (8.4-10.2) 09/09/24 Phosphorus 3.5 mg/dL (2.7-4.5) 10/11/21 Urine Protein Negative mg/dL (Neg-Trace) 09/09/24 Urine Creatinine 334.72 mg/dL 10/09/22 Protein/Creatinin Ratio 0.05 (<0.2) 10/09/22 Assessment & Plan Assessment & Plan (1) CKD (chronic kidney disease): Code(s): N18.9 - Chronic kidney disease, unspecified Category: Medical Plan: . 64 yr old woman with mild CKD Age related loss of nephron Urine sediments are bland - no evidence of AGN/AiN Encouraged to stay on low salt diet Increase PO fluid intake Avoid nephrotoxins including NSAIDS Orders: Orders Total Protein Urine Random 1 Year N18.9 - Chronic kidney disease, unspecified UA and rflx microscopic 1 Year N18.9 - Chronic kidney disease, unspecified Basic Metabolic Panel 1 Year N18.9 - Chronic kidney disease, unspecified Creatinine Urine 1 Year N18.9 - Chronic kidney disease, unspecified Coding Level of Care Code Est Pt Level 4 (91633) Diagnoses CKD (chronic kidney disease) N18.9
--- OUTSIDE RECORDS SUMMARY | 2024-09-25 15:44 | XMS_ITS | Patient Health Record ---
Author Organization [facility] Address [address] [place] [address] Care Team Providers Care Genetic Supervisor Name Role Phone Aniket Allen MD Primary Care Provider Soy Owens Unavailable [phone] Allergies No Known Allergies Reason For Referral [...] 07/15/2024 Encounters Encounter Location Date Provider Diagnosis [facility] [address] [place] [address] 07/15/2024 Soy Mejía Pain in right foot M79.671 ; Pain in right ankle and joints of right foot M25.571 ; Bursitis of intermetatarsal bursa of right foot M77.51 and Metatarsalgia, right foot M77.41 [facility] [place] [address] [place] [address] 07/15/2024 Soy Mejía Assessments Encounter Date Diagnosis [...] X ray : Foot, right 3V 07/15/2024 [id number] TENDON SHEATH/LIGAMENT 0 09/26/2017 [id number] TENDON SHEATH/LIGAMENT 0 10/11/201795016,[id number] TENDON SHEATH/LIGAMENT 0 10/24/2017 Insurance Providers Payer Name Payer Address Payer Phone Subscriber Number Group Number Insured Name Patient Relationship to Insured Coverage Start Date Coverage End Date [facility] [address] [place] [address] [phone] [id number] Justin Mayorga Spouse - patient is the spouse of the insured Medical (General) History Medical History History ICD Code Arthritis Headaches Macular degeneration Cataracts covid-19 Headaches/Migraines Kidney disease Measles Mumps Chicken pox
== END 2024-09-25 13:41 | disposition home or self-care (01) ==
LOC: HO.HKA 13:28
PROVIDERS: PCP Internal Medicine; Visit Provider Internal Medicine Hypertension Specialist
DX: N18.9 Chronic kidney disease, unspecified (principal)
CPT/HCPCS: 99214

== ENCOUNTER 2025-03-03 08:16 | Outpatient (REF) | payer BC, SELFPAY ==
[2025-03-03 09:28] LABS: Alanine Aminotransferase 34 U/L (0-31); Albumin Level 4.2 g/dL (3.5-5.0); Alkaline Phosphatase 56 U/L (39-117); Anion Gap 11 (12-20); Aspartate Amino Transferase 27 U/L (5-31); Blood Urea Nitrogen 11 mg/dL (9-16); Calcium 8.8 mg/dL (8.4-10.2); Carbon Dioxide 26 mmol/L (22-29); Chloride 106 mmol/L (96-108); Cholesterol 232 mg/dL (<200); Estimated Glomerular Filt Rate 46; HDL Cholesterol 61 mg/dL (>40); Potassium 4.2 mmol/L (3.3-5.1); Sodium 139 mmol/L (135-145); Total Protein 6.8 g/dL (6.5-8.0); Triglycerides 147 mg/dL (<150)
== END 2025-03-03 08:17 | disposition home or self-care (01) ==
LOC: HO.LAB 08:16
PROVIDERS: PCP Internal Medicine; Visit Provider Internal Medicine
DX: E78.2 Mixed hyperlipidemia (principal); R73.01 Impaired fasting glucose
CPT/HCPCS: 36415; 80053; 80061; 83036